=== PATIENT | female | born 1975 | race Caucasian/White ===

== ENCOUNTER 2018-07-04 14:47 | Emergency (ER) | payer OTHER ==
[~2018-07-04] VITALS: Ht 165.1 cm; Wt 104.3 kg
[2018-07-04 15:44] VITALS: BP_SYST 149
== END 2018-07-04 16:17 | disposition left against medical advice (07) ==
LOC: SED 14:47
DX: R05 Cough (principal); R09.81 Nasal congestion; Z53.21 Procedure and treatment not carried out due to patient leaving prior to being seen by health care provider